=== PATIENT | female | born 1955 | race Caucasian/White ===

== ENCOUNTER 2016-11-26 12:05 | Emergency (ER) | payer OTHER ==
[~2016-11-26] VITALS: Ht 167.6 cm; Wt 92.4 kg
[~2016-11-26 12:05] MED LIST: ASPIRIN81 M2 PO; ATIVAN2 MG PO; ATORVASTATIN CA80 MG PO; Amaryl PO; CATAPRES0.1 MG PO; CIPRO500 MG PO; CRESTOR5 MG PO; Cipro PO; DURAGESIC50 MCG TD; Duragesic TD; EXFORGE 10/11 TABLET; Exforge 10/320 PO; GLUCOPHAGE1000 MG PO; Glucophage PO; HYDRALAZINE HCL25 MG PO; JANUVIA100 MG PO; KLONOPIN1 MG PO; LANTUS 10100 UNITS/ SC; LANTUS100 UNIT/1 SQ; LISINOPRIL40 MG PO; LORTAB 5-325 M1 EACH PO; NORMODYNE,TRAN200 MG PO; NORVASC5 MG PO; NOVOLOG 10100 UNITS/ SC; PERCOCET 10/1 TABLET PO; Percocet 5/325,Endoc PO; Vicodin,Norco 5/325 PO
[2016-11-26 12:35] LABS: CREATININE 0.5 mg/dL (0.6-1.3)
[2016-11-26 12:45] LABS: BASOPHIL COUNT 0.1 K/uL (0-0.1); EOSINOPHIL (%) 0.2 % (0-5); HEMATOCRIT 47.6 % (36.0-46.0); IMMATURE GRANULOCYTE (%) 0.2 % (0.0-0.7); IMMATURE GRANULOCYTE COUNT 0.3 K/uL; LYMPHOCYTE COUNT 1.9 K/uL (1.0-2.8); MCH 31.3 PG (29.0-34.0); MCV 92.1 FL (83-99); MEAN PLAT.VOLUME 10.9 uM^3 (9.5-12.4); MONOCYTE (%) 5.3 % (3-12); MONOCYTE COUNT 0.7 K/uL (0-0.8); NEUTROPHIL (%) 79.1 % (45-76); NEUTROPHIL COUNT 10.3 K/uL (1.8-6.4); PLATELET COUNT 281 K/uL (156-360); RBC DIS.WIDTH-CV 13.7 % (11.8-14.6); RBC DIS.WIDTH-SD 44.9 % (39-53); RED BLOOD COUNT 5.17 M/uL (3.80-5.20); WHITE BLOOD COUNT 12.9 K/uL (4.1-10.2)
[2016-11-26 12:50] LABS: CHLORIDE 104 mEq/L (99-109); MAGNESIUM 1.9 mg/dL (1.3-2.7); POTASSIUM 3.8 mEq/L (3.7-5.4); SODIUM 136 mEq/L (136-147)
[2016-11-26 12:51] LABS: GLUCOSE 276 mg/dL (70-99)
[2016-11-26 12:53] LABS: ANION GAP 12 MEQ/L (2-14)
[2016-11-26 12:54] LABS: PROTHROMBIN TIME 10.6 (9.2-11.2); PTT 29.2 (25-32)
[2016-11-26 12:55] LABS: GFR ESTIMATE (CALCULATED) > 59 mL/min/
[2016-11-26 12:56] LABS: UREA NITROGEN (BUN) 12 mg/dL (9-23)
[2016-11-26 12:57] LABS: POTASSIUM 3.8 MEQ/L (3.7-5.4)
[2016-11-26 13:01] LABS: TROP-I INTERPRETATION NEGATIVE; TROPONIN-I < 0.01 ng/mL (0.0-0.30)
[2016-11-26 14:40] VITALS: BP 155/70
== END 2016-11-26 14:40 | disposition short-term general hospital (02) ==
LOC: EME → EDBD 12:05 → EME 12:05
PROVIDERS: Emergency Medicine
DX: I66.01 Occlusion and stenosis of right middle cerebral artery (principal); I16.1 Hypertensive emergency; I25.10 Atherosclerotic heart disease of native coronary artery without angina pectoris; E11.9 Type 2 diabetes mellitus without complications; E78.5 Hyperlipidemia, unspecified; I25.2 Old myocardial infarction; I50.9 Heart failure, unspecified; Z88.1 Allergy status to other antibiotic agents; Z88.0 Allergy status to penicillin
CPT/HCPCS: 70450; 70496; 70498; 80047; 80048; 83605; 83735; 84484; 84999; 85025; 85610; 85730; 93005; 99281; 99285; J2997; J7050

== ENCOUNTER 2016-11-30 09:38 | Inpatient (IN) | payer OTHER ==
[~2016-11-30] VITALS: Ht 160 cm; Wt 86.0 kg
[2016-11-30 09:47] VITALS: BP 150/65
[2016-11-30] MEDS ORDERED: PLAVIX75 MG PO (10:37)
[2016-11-30] MEDS ORDERED: HEPARIN SO5000 UNITS SC (10:39)
[2016-11-30] MEDS ORDERED: NICODERM CQ1 EAC1 TD (10:40)
[2016-11-30] MEDS ORDERED: HYDROCHLOROTHIA25 MG PO (10:40)
[2016-11-30] MEDS ORDERED: OXYCODONE HCL10 MG PO (10:41)
[2016-11-30 10:57] LABS: POINT-OF-CARE METER ID UU13113720
[2016-11-30 15:08] VITALS: BP 140/66
[2016-11-30 16:10] LABS: POINT-OF-CARE METER ID UU14174215
[2016-11-30 21:03] LABS: POINT-OF-CARE METER ID UU13113720
[2016-12-01 00:40] VITALS: BP 162/67
[2016-12-01 06:50] LABS: HEMATOCRIT 44.7 % (36.0-46.0); MCH 32.3 PG (29.0-34.0); MCHC 33.8 G/DL (30.0-36.0); MCV 95.7 FL (83-99); MEAN PLAT.VOLUME 11.3 uM^3 (9.5-12.4); PLATELET COUNT 248 K/uL (156-360); RBC DIS.WIDTH-CV 13.9 % (11.8-14.6); RBC DIS.WIDTH-SD 48.2 % (39-53); RED BLOOD COUNT 4.67 M/uL (3.80-5.20); WHITE BLOOD COUNT 9.8 K/uL (4.1-10.2)
[2016-12-01 07:21] LABS: ALKALINE PHOSPHATASE 93 IU/L (3-129); ANION GAP 9 MEQ/L (2-14); CHLORIDE 99 MEQ/L (99-109); GFR ESTIMATE (CALCULATED) > 59 mL/min/; GLUCOSE 264 mg/dL (70-99); POTASSIUM 3.9 MEQ/L (3.7-5.4); SAMPLE HEMOLYSIS CHECK 0; SAMPLE ICTERIC CHECK 0; SAMPLE LIPEMIA CHECK 0; SODIUM 134 MEQ/L (136-147); TOTAL BILIRUBIN 0.4 MG/DL (0.0-1.0)
[2016-12-01 07:22] LABS: UREA NITROGEN (BUN) 28 mg/dL (9-23)
[2016-12-01 07:33] LABS: POINT-OF-CARE METER ID UU14174215
[2016-12-01 11:31] LABS: POINT-OF-CARE METER ID UU14174215
[2016-12-01 15:00] VITALS: BP 140/96
[2016-12-01 16:23] LABS: POINT-OF-CARE METER ID UU14174215
[2016-12-01 21:01] LABS: POINT-OF-CARE METER ID UU13113720
[2016-12-02 06:04] VITALS: BP 142/63
[2016-12-02 07:40] LABS: POINT-OF-CARE METER ID UU14174215
[2016-12-02 12:19] LABS: POINT-OF-CARE METER ID UU14174215
[2016-12-02 15:00] VITALS: BP 148/69
[2016-12-02 16:45] LABS: POINT-OF-CARE METER ID UU14174215
[2016-12-02 21:05] LABS: POINT-OF-CARE METER ID UU14174215
[2016-12-03 05:30] VITALS: BP 135/62
[2016-12-03 07:25] LABS: POINT-OF-CARE METER ID UU14174215
[2016-12-03 11:22] LABS: POINT-OF-CARE METER ID UU14174215
[2016-12-03 15:12] VITALS: BP 137/63
[2016-12-03 16:33] LABS: POINT-OF-CARE METER ID UU13113720
[2016-12-03 21:01] LABS: POINT-OF-CARE METER ID UU13113720
[2016-12-04 04:58] VITALS: BP 134/63
[2016-12-04 06:29] LABS: POINT-OF-CARE METER ID UU13113720
[2016-12-04 11:32] LABS: POINT-OF-CARE METER ID UU13113720
[2016-12-04 15:20] VITALS: BP 119/58
[2016-12-04 16:21] LABS: POINT-OF-CARE METER ID UU13113712
[2016-12-04 20:52] LABS: POINT-OF-CARE METER ID UU13113720
[2016-12-05 05:01] VITALS: BP 127/60
[2016-12-05 07:51] LABS: POINT-OF-CARE METER ID UU13113720
[2016-12-05 12:14] LABS: POINT-OF-CARE METER ID UU13113720
[2016-12-05 15:00] VITALS: BP 125/60
[2016-12-05 16:09] LABS: GFR ESTIMATE (CALCULATED) > 59 mL/min/; UREA NITROGEN (BUN) 25 mg/dL (9-23)
[2016-12-05 16:49] LABS: POINT-OF-CARE METER ID UU13113720
[2016-12-05 21:41] LABS: POINT-OF-CARE METER ID UU13113720
[2016-12-06 05:00] VITALS: BP 127/59
[2016-12-06 07:15] LABS: POINT-OF-CARE METER ID UU13113720
[2016-12-06 11:07] LABS: POINT-OF-CARE METER ID UU13113720
[2016-12-06 15:13] VITALS: BP 132/58
[2016-12-06 16:29] LABS: POINT-OF-CARE METER ID UU13113720
[2016-12-06 21:37] LABS: POINT-OF-CARE METER ID UU13113712
[2016-12-07 05:19] VITALS: BP 126/60
[2016-12-07 06:57] LABS: POINT-OF-CARE METER ID UU13113712; POINT-OF-CARE USER ID ENVGAF
[2016-12-07 11:33] LABS: POINT-OF-CARE METER ID UU13113712; POINT-OF-CARE USER ID ENVGAF
[2016-12-07 15:17] VITALS: BP 115/52
[2016-12-07 16:37] LABS: POINT-OF-CARE METER ID UU13113720
[2016-12-07 21:03] LABS: POINT-OF-CARE METER ID UU13113720
[2016-12-08 05:46] VITALS: BP 118/56
[2016-12-08 06:59] LABS: POINT-OF-CARE METER ID UU13113712; POINT-OF-CARE USER ID ENVGAF
[2016-12-08 11:30] LABS: POINT-OF-CARE METER ID UU13113712; POINT-OF-CARE USER ID ENVGAF
[2016-12-08 15:23] VITALS: BP 127/58
[2016-12-08 16:45] LABS: POINT-OF-CARE METER ID UU13113720
[2016-12-08 21:24] LABS: POINT-OF-CARE METER ID UU13113712
[2016-12-09 05:22] VITALS: BP 137/61
[2016-12-09 07:31] LABS: POINT-OF-CARE METER ID UU13113720; POINT-OF-CARE USER ID AHSSSJB31
[2016-12-09 11:24] LABS: POINT-OF-CARE METER ID UU13113720; POINT-OF-CARE USER ID AHSSSJB31
[2016-12-09 17:02] LABS: POINT-OF-CARE METER ID UU13113712
[2016-12-09 17:07] VITALS: BP 126/60
[2016-12-09 21:05] LABS: POINT-OF-CARE METER ID UU13113712
[2016-12-10 05:00] VITALS: BP 122/60
[2016-12-10 07:52] LABS: POINT-OF-CARE METER ID UU13113720; POINT-OF-CARE USER ID AHSSSJB31
[2016-12-10 11:53] LABS: POINT-OF-CARE METER ID UU13113720; POINT-OF-CARE USER ID AHSSSJB31
[2016-12-10 15:38] VITALS: BP 142/56
[2016-12-10 16:38] LABS: POINT-OF-CARE METER ID UU14174215
[2016-12-10 21:35] LABS: POINT-OF-CARE METER ID UU14174215
[2016-12-11 04:51] VITALS: BP 141/65
[2016-12-11 04:58] LABS: HEMATOCRIT 41.2 % (36.0-46.0); MCH 31.2 PG (29.0-34.0); MCHC 33.7 G/DL (30.0-36.0); MCV 92.4 FL (83-99); MEAN PLAT.VOLUME 10.9 uM^3 (9.5-12.4); PLATELET COUNT 236 K/uL (156-360); RBC DIS.WIDTH-CV 13.2 % (11.8-14.6); RBC DIS.WIDTH-SD 43.4 % (39-53); RED BLOOD COUNT 4.46 M/uL (3.80-5.20); WHITE BLOOD COUNT 9.8 K/uL (4.1-10.2)
[2016-12-11 05:05] LABS: CHLORIDE 104 mEq/L (99-109); POTASSIUM 4.3 mEq/L (3.7-5.4); SODIUM 136 mEq/L (136-147)
[2016-12-11 05:08] LABS: GLUCOSE 140 mg/dL (70-99)
[2016-12-11 05:09] LABS: ANION GAP 10 MEQ/L (2-14)
[2016-12-11 05:10] LABS: TOTAL BILIRUBIN 0.4 mg/dL (0.0-1.0)
[2016-12-11 05:11] LABS: ALKALINE PHOSPHATASE 92 IU/L (3-129)
[2016-12-11 05:12] LABS: GFR ESTIMATE (CALCULATED) > 59 mL/min/
[2016-12-11 05:13] LABS: UREA NITROGEN (BUN) 22 mg/dL (9-23)
[2016-12-11 07:03] LABS: POINT-OF-CARE METER ID UU14174215
[2016-12-11 11:17] LABS: POINT-OF-CARE METER ID UU14174215
[2016-12-11] MEDS ORDERED: NICODERM CQ1 EAC1 TD (11:25)
[2016-12-11] MEDS ORDERED: LANTUS 10100 UNITS/ SC (11:25)
[2016-12-11] MEDS ORDERED: ASPIRIN81 M2 PO (11:25)
[2016-12-11] MEDS ORDERED: NORVASC5 MG PO (11:25)
[2016-12-11] MEDS ORDERED: GLUCOPHAGE1000 MG PO (11:25)
[2016-12-11] MEDS ORDERED: ATORVASTATIN CA80 MG PO (11:25)
[2016-12-11] MEDS ORDERED: HYDROCHLOROTHIA25 MG PO (11:25)
[2016-12-11] MEDS ORDERED: DOCUSATE SODIU100 MG PO (11:25)
[2016-12-11] MEDS ORDERED: SENNA PLUS TAB1 EACH PO (11:25)
[2016-12-11] MEDS ORDERED: PLAVIX75 MG PO (11:25)
[2016-12-11] MEDS ORDERED: LISINOPRIL40 MG PO (11:25)
[2016-12-11 15:13] VITALS: BP 126/57
[2016-12-11 16:31] LABS: POINT-OF-CARE METER ID UU14174215
[2016-12-11 21:22] LABS: POINT-OF-CARE METER ID UU13113720
[2016-12-12 05:39] VITALS: BP 132/60
[2016-12-12 07:06] LABS: POINT-OF-CARE METER ID UU14174215; POINT-OF-CARE USER ID ENVGAF
[2016-12-12 11:15] LABS: POINT-OF-CARE METER ID UU14174215; POINT-OF-CARE USER ID ENVGAF
== END 2016-12-12 13:28 | DRG 56 ==
LOC: 3WEST 09:38
PROVIDERS: Physical Medicine & Rehabilitation Pain Medicine
PROC: F07M0ZZ Range of Motion and Joint Mobility Treatment of Musculoskeletal System - Whole Body (ICD-10-PCS; principal; 2016-11-30)
DX: I69.354 Hemiplegia and hemiparesis following cerebral infarction affecting left non-dominant side (principal); G04.81 Other encephalitis and encephalomyelitis; E87.1 Hypo-osmolality and hyponatremia; I10 Essential (primary) hypertension; E78.5 Hyperlipidemia, unspecified; E11.9 Type 2 diabetes mellitus without complications; I25.10 Atherosclerotic heart disease of native coronary artery without angina pectoris; Z86.718 Personal history of other venous thrombosis and embolism; I73.9 Peripheral vascular disease, unspecified; G89.29 Other chronic pain; Z95.5 Presence of coronary angioplasty implant and graft; F17.200 Nicotine dependence, unspecified, uncomplicated; N20.0 Calculus of kidney; E27.9 Disorder of adrenal gland, unspecified; K59.00 Constipation, unspecified
CPT/HCPCS: 71260; 74177; 80053; 82565; 82945; 82948; 83516 90; 83519 90; 84157; 84181 90; 84182 90; 84520; 85027; 86255 90; 97110 GO; 97112 GO; 97530 GP; J1644; J1815

== ENCOUNTER → 2017-11-19 | Outpatient (CLI) | payer MEDICARE ==
[~2017-11-19] MED LIST changes: +DOCUSATE SODIU100 MG PO; +HEPARIN SO5000 UNITS SC; +HYDROCHLOROTHIA25 MG PO; +NICODERM CQ1 EAC1 TD; +OXYCODONE HCL10 MG PO; +PLAVIX75 MG PO; +SENNA PLUS TAB1 EACH PO
== END | disposition home or self-care (01) ==
LOC: CDC 12:35
DX: Z01.810 Encounter for preprocedural cardiovascular examination (principal); I73.9 Peripheral vascular disease, unspecified; R00.0 Tachycardia, unspecified; I51.7 Cardiomegaly; I25.2 Old myocardial infarction; R94.31 Abnormal electrocardiogram [ECG] [EKG]
CPT/HCPCS: 93000

== ENCOUNTER 2017-11-25 06:24 | Day surgery (SDC) | payer OTHER ==
[~2017-11-25] VITALS: Ht 160 cm; Wt 84.0 kg
== END 2017-11-25 14:00 | disposition home or self-care (01) ==
LOC: CATH 06:24
PROVIDERS: Surgery
PROC: B41D1ZZ Fluoroscopy of Aorta and Bilateral Lower Extremity Arteries using Low Osmolar Contrast (ICD-10-PCS; principal; 2017-11-25)
DX: I70.213 Atherosclerosis of native arteries of extremities with intermittent claudication, bilateral legs (principal); I25.10 Atherosclerotic heart disease of native coronary artery without angina pectoris; I10 Essential (primary) hypertension; E11.9 Type 2 diabetes mellitus without complications; E78.5 Hyperlipidemia, unspecified; I25.2 Old myocardial infarction; Z88.0 Allergy status to penicillin; Z79.4 Long term (current) use of insulin; Z79.82 Long term (current) use of aspirin; Z79.02 Long term (current) use of antithrombotics/antiplatelets; F17.200 Nicotine dependence, unspecified, uncomplicated
CPT/HCPCS: 82948; C1760; C1769; C1894; J0360; J1200; J1644; J2250; J3010

== ENCOUNTER 2018-01-10 12:54 | Inpatient (IN) | payer OTHER ==
[~2018-01-10] VITALS: Ht 160 cm; Wt 86.5 kg
[2018-01-10 13:05] VITALS: BP 186/74
[2018-01-10] MEDS ORDERED: COLACE100 MG PO (14:00)
[2018-01-10] MEDS ORDERED: SENNA S TABLET1 EACH PO (14:01)
[2018-01-10] MEDS ORDERED: CILOSTAZOL100 MG PO (14:03)
[2018-01-10] MEDS ORDERED: CATAPRES0.1 MG PO (14:04)
[2018-01-10] MEDS ORDERED: PLAVIX75 MG PO (14:07)
[2018-01-10] MEDS ORDERED: AMBIEN10 MG PO (14:08)
[2018-01-10] MEDS ORDERED: LANTUS 10100 UNITS/ SC (14:13)
[2018-01-10] MEDS ORDERED: HEPARIN SO5000 UNIT4 SC (14:16)
[2018-01-10 15:21] VITALS: BP 174/72
[2018-01-10 15:44] LABS: HEMATOCRIT 32.4 % (36.0-46.0); MCH 32.1 PG (29.0-34.0); MCV 94.5 FL (83-99); PLATELET COUNT 230 K/uL (156-360); RBC DIS.WIDTH-CV 13.7 % (11.8-14.6); WHITE BLOOD COUNT 6.8 K/uL (4.1-10.2)
[2018-01-10 16:07] LABS: ALBUMIN 3.3 G/DL (3.2-4.8); ALKALINE PHOSPHATASE 115 IU/L (3-129); ALT (GPT) 20 IU/L (3-49); AST (GOT) 23 IU/L (2-34); CHLORIDE 101 MEQ/L (99-109); CREATININE 0.5 MG/DL (0.6-1.3); GFR ESTIMATE (CALCULATED) > 59 mL/min/; GLUCOSE 135 mg/dL (70-99); SODIUM 137 MEQ/L (136-147); TOTAL BILIRUBIN 0.7 MG/DL (0.0-1.0); TOTAL PROTEIN 6.5 G/DL (6.4-8.3); UREA NITROGEN (BUN) 13 mg/dL (9-23)
[2018-01-10 16:22] LABS: RED BLOOD COUNT 3.43 M/uL (3.80-5.20)
[2018-01-10 17:30] LABS: APPEARANCE CLEAR ((CLEAR)); BILIRUBIN NEGATIVE; BLOOD NEGATIVE; COLOR YELLOW ((YELLOW)); GLUCOSE (STRIP) NEGATIVE; KETONES NEGATIVE; LEUKOCYTES SMALL; NITRITE NEGATIVE; PROTEIN (STRIP) NEGATIVE; SPECIFIC GRAVITY 1.009 (1.000-1.030)
[2018-01-10 17:43] LABS: BACTERIA 2+ /HPF; EPITHELIAL CELLS RARE /HPF; MUCUS TRACE /LPF; UCUL ADDED? YES
[2018-01-11 00:01] VITALS: BP 154/70
[2018-01-11 05:53] VITALS: BP 125/60
[2018-01-11 15:36] VITALS: BP 135/63
[2018-01-12 05:50] VITALS: BP 121/54
[2018-01-12 15:26] VITALS: BP 138/65
[2018-01-13 05:29] VITALS: BP 148/67
[2018-01-13 14:47] VITALS: BP 162/73
[2018-01-13 20:19] VITALS: BP 185/79
[2018-01-14] VITALS: BP 154/76
[2018-01-14 06:01] VITALS: BP 165/79
[2018-01-14 15:13] VITALS: BP 115/58
[2018-01-15 04:50] VITALS: BP 128/63
[2018-01-15] MEDS ORDERED: ATORVASTATIN CA80 MG PO (08:07)
[2018-01-15] MEDS ORDERED: LYRICA50 MG PO (08:07)
[2018-01-15] MEDS ORDERED: PERCOCET 10/1 TABLET PO (08:07)
[2018-01-15] MEDS ORDERED: COLACE100 MG PO (08:07)
[2018-01-15] MEDS ORDERED: NORVASC5 MG PO (08:07)
[2018-01-15] MEDS ORDERED: PLAVIX75 MG PO (08:07)
[2018-01-15] MEDS ORDERED: SENNA S TABLET1 EACH PO (08:07)
[2018-01-15] MEDS ORDERED: ASPIRIN81 M2 PO (08:07)
[2018-01-15] MEDS ORDERED: LISINOPRIL40 MG PO (08:07)
[2018-01-15 15:29] VITALS: BP 145/72
== END 2018-01-15 16:50 | DRG 945 ==
LOC: 3WEST 12:54 → ENPENDDIS 01-15 → 3WEST 01-15 16:50
PROVIDERS: Physical Medicine & Rehabilitation
PROC: F07M0ZZ Range of Motion and Joint Mobility Treatment of Musculoskeletal System - Whole Body (ICD-10-PCS; principal; 2018-01-10)
DX: G89.18 Other acute postprocedural pain (principal); R26.2 Difficulty in walking, not elsewhere classified; G62.9 Polyneuropathy, unspecified; I99.8 Other disorder of circulatory system; Z95.820 Peripheral vascular angioplasty status with implants and grafts; I69.354 Hemiplegia and hemiparesis following cerebral infarction affecting left non-dominant side; G89.29 Other chronic pain; I25.10 Atherosclerotic heart disease of native coronary artery without angina pectoris; J44.9 Chronic obstructive pulmonary disease, unspecified; E11.9 Type 2 diabetes mellitus without complications; H40.9 Unspecified glaucoma; I10 Essential (primary) hypertension; Z72.0 Tobacco use; Z87.442 Personal history of urinary calculi; Z87.440 Personal history of urinary (tract) infections; Z95.1 Presence of aortocoronary bypass graft; Z90.710 Acquired absence of both cervix and uterus; Z88.0 Allergy status to penicillin; Z79.84 Long term (current) use of oral hypoglycemic drugs; Z79.82 Long term (current) use of aspirin; Z79.02 Long term (current) use of antithrombotics/antiplatelets; Z79.891 Long term (current) use of opiate analgesic
CPT/HCPCS: 80053; 81003; 82948; 85027; 87086; 97110 GO; 97530 GP; A6212; J1644; J1815

== ENCOUNTER 2018-03-07 21:54 | Emergency (ER) | payer OTHER ==
[~2018-03-07] VITALS: Ht 160 cm; Wt 82.6 kg
[~2018-03-07 21:54] MED LIST changes: +AMBIEN10 MG PO; +CILOSTAZOL100 MG PO; +COLACE100 MG PO; +HEPARIN SO5000 UNIT4 SC; +LYRICA50 MG PO; +SENNA S TABLET1 EACH PO
[2018-03-08 00:45] VITALS: BP 158/75
== END 2018-03-08 00:45 | disposition home or self-care (01) ==
LOC: EME 21:54
DX: E11.40 Type 2 diabetes mellitus with diabetic neuropathy, unspecified (principal); J44.9 Chronic obstructive pulmonary disease, unspecified; I11.0 Hypertensive heart disease with heart failure; I50.9 Heart failure, unspecified; E78.5 Hyperlipidemia, unspecified; I25.2 Old myocardial infarction; Z79.02 Long term (current) use of antithrombotics/antiplatelets; Z87.891 Personal history of nicotine dependence; Z87.442 Personal history of urinary calculi; Z86.73 Personal history of transient ischemic attack (TIA), and cerebral infarction without residual deficits; Z90.49 Acquired absence of other specified parts of digestive tract; Z90.710 Acquired absence of both cervix and uterus; Z88.1 Allergy status to other antibiotic agents; Z88.0 Allergy status to penicillin
CPT/HCPCS: 93926; 93971; 99281; 99284; J1885